=== PATIENT | female | born 2000 | race Caucasian/White ===

== ENCOUNTER 2018-02-09 02:07 | Day surgery (SDC) | payer BC ==
[2017-04-23 00:11] VITALS: Ht 171.4 cm; Wt 48.5 kg
[~2018-02-09] VITALS: Ht 171.4 cm; Wt 48.5 kg
[~2018-02-09 02:07] MED LIST: ACET-1718 PO; ARIP10TA4 PO; DICY20TA70 PO; DOXY-229 PO; IBUP600T22 PO; NIFE10CA38 PO; NITR-105 PO; PREN-127 PO
[2018-02-09 07:53] VITALS: BP 109/67
[2018-02-09] MEDS ORDERED: DEXAMETHASONE SOD PHOS 10MG/ML ONE (07:58)
[2018-02-09] MEDS ORDERED: ONDANSETRON 4 MG/2 ML VIAL ONE (07:58)
[2018-02-09] MEDS ORDERED: PROPOFOL EMUL(*) 10MG/ML 20 ML 20 ML ONE (07:58)
[2018-02-09] MEDS ORDERED: ROCURONIUM BROM 10 MG/ML 10 ML ONE (07:58)
[2018-02-09] MEDS ORDERED: LIDOCAINE MPF 1% 5 ML VIAL ONE (07:58)
[2018-02-09] MEDS ORDERED: fentaNYL CITR 100 MCG/2 ML AMP ONE (07:59)
[2018-02-09] MEDS ORDERED: FAMOTIDINE 20 MG TAB PO ONE (08:00)
[2018-02-09] MEDS ORDERED: NORMOSOL R SOLN(*) 1000 ML BAG 1,000 ML IV PRN (08:00)
[2018-02-09] MEDS ORDERED: MIDAZOLAM 2 MG/2 ML VIAL IVP PRN (08:00)
[2018-02-09] MEDS ORDERED: LIDOCAINE/SOD BICARB 8.4% SYR ID ONE (08:00)
[2018-02-09 08:02] LABS: PLATELET COUNT, AUTOMATED 282 K/uL (150-450)
[2018-02-09] MEDS ORDERED: ROPIVACAINE 0.2% 20 ML VIAL ONE (08:32)
[2018-02-09] MEDS ORDERED: ceFAZolin(*) 1 GM VIAL 1 GM in NS(*) 0.9% 100 ML ADDVANT BAG 100 ML IVPB ONE (08:40)
[2018-02-09] MEDS ORDERED: KETOROLAC 30 MG/ML VIAL ONE (09:30)
[2018-02-09] MEDS ORDERED: LR(*) 1000 ML BAG 1,000 ML IV ONE (10:07)
[2018-02-09] MEDS ORDERED: ONDANSETRON 4 MG/2 ML VIAL IVP PRN (10:10)
[2018-02-09] MEDS ORDERED: METOCLOPRAMIDE 10 MG/2 ML SDV IVP PRN (10:10)
--- NOTE | 2018-02-09 10:17 | Post Operative Note ---
Operative Note - [employer] Operative Day Date: Feb 09, 2018 Time: 10:08 Physicians Surgeon: Ailyn Hines Anesthesia: JORGE A Griffin Frey 0.2% rupivicaine Diagnosis Pre-Op Diagnosis: 17 y/o Pelvic pain -failed medical management Post-Op Diagnosis: same Procedure Findings: Uterus 6-8 week size. No masses or fibroids noted. Ovaries bilaterally normal. Fallopian tubes normal with patency noted on chrompertubation No evidence of endometriosis. Procedure(s): Diagnostic laparoscopy Chromopertubation Complications: 0 known Fluids Fluids: 1100 u/o=0 Estimated Blood Loss: 10 cc Dictated Date OP Note Dictated: Feb 09, 2018 Time OP Note Dictated: 10:16 AILYN HINES DO Feb 09, 2018 10:16
[2018-02-09] MEDS ORDERED: HYDR-4309 PO (10:19)
[2018-02-09] MEDS ORDERED: IBUP800T37 PO (10:19)
--- NOTE | 2018-02-09 10:21 | OB/GYN Discharge Summary ---
Discharge Summary Reason for Hosp/Final Diag: (1) Pelvic pain Status: Acute Hospital Course & Plan: Pt underwent diagnostic laparoscopy with chromopertubation for pelvic pain. See operative report for details. Pt remained in recovery and was discharged home from same day surgery. [place] Vital Signs Vital Signs Date Time Temp Pulse Resp B/P (MAP) Pulse Ox O2 Delivery O2 Flow Rate FiO2 02/09/18 09:46 89 20 95 02/09/18 07:53 97.8 109/67 (81) Room Air Weight (Pounds): 107 Result Diagram: 02/09/18 0748 Condition: No Change Discharge: Home Home Meds Active Scripts Ibuprofen (IBUPROFEN) 800 Mg Tablet, 1 TAB PO Q8H Y for PAIN, #20 TAB TAKE WITH FOOD EVERY 8 HOURS Prov:AILYN CLARKE DO 02/09/18 Hydrocodone Bit/Acetaminophen (NORCO 5-325 TABLET) 1 Each Tablet, 1 EACH PO Q4H Y for PAIN, #20 TAB 0 Refills Prov:AILYN CLARKE DO 02/09/18 Discontinued Scripts Dicyclomine Hcl (DICYCLOMINE HCL) 20 Mg Tablet, 20 MG PO QID for 14 Days, #56 TAB 1 Refill Prov:AILYN CLARKE DO 01/11/18 Doxycycline Monohydrate (DOXYCYCLINE MONOHYDRATE) 100 Mg Tablet, 100 MG PO BID, #20 TAB 0 Refills Prov:AILYN CLARKE DO 01/11/18 [phone] Follow up in: 2 wks PO Discharge Diet: As Tolerates, Resume Prior Admit Diet Discharge Activity: As Tolerates, Pelvic Rest AILYN CLARKE DO Feb 09, 2018 10:21
[2018-02-09 10:45] VITALS: BP 103/71
[2018-02-09 11:16] VITALS: BP 107/70
[2018-02-09 11:18] VITALS: BP 100/60
[2018-02-09] MEDS ORDERED: IBUPROFEN 800 MG TAB PO SCH (12:00)
--- NOTE | 2018-02-09 16:13 | OPERATIVE REPORT 1 ---
EVENT DATE: February 09, 2018 SURGEON: Rufino Hines DO ANESTHESIOLOGIST: Griffin Frey MD ANESTHESIA: General endotracheal intubation, 0.2% ropivacaine used for local incisions. PREOPERATIVE DIAGNOSES 1. A 17-year-old 1, para 1. 2. Pelvic pain, failed medical management. POSTOPERATIVE DIAGNOSES 1. A 17-year-old 1, para 1. 2. Pelvic pain, failed medical management. PROCEDURE PERFORMED Diagnostic laparoscopy with chromopertubation. FINDINGS Uterus 6 to 8 weeks' size. No masses or fibroids noted. Ovaries were normal bilaterally. Fallopian tubes normal with patency noted bilaterally on chromopertubation with no evidence of endometriosis in the pelvis or abdomen. Smooth liver. ESTIMATED BLOOD LOSS 10 mL INTRAVENOUS FLUIDS 1100 mL URINE OUTPUT None. PATHOLOGY None. COMPLICATIONS None known. CONDITION Stable to Recovery and then to Postop. COUNTS Correct for all needles, laps, sponges, and instruments. INDICATIONS AND CONSENT Patient is a 17-year-old 1, para 1, who presented to clinic with chief complaint of pelvic pain. On exam, she did have significant tenderness in line with what appeared to be an endometritis. She was started on doxycycline b.i.d. for 14 days. Patient returned, reported there had been little improvement in pain, and desired to proceed with surgical management to rule out endometriosis. She was counseled that there were other alternatives to try before surgery. The patient was adamant for surgery and desired to proceed accordingly. She was then counseled on risks, benefits, and alternatives, signed the appropriate consents, and was taken to the operating room DESCRIPTION OF PROCEDURE Patient was taken to the operating room where she had general anesthesia achieved. Once anesthesia was achieved, she was placed in the dorsal lithotomy position. She had an acorn uterine manipulator placed in the cervix. Attached to that was a syringe full of methylene blue dyed saline for the chromopertubation. The speculum was removed, and the surgeon's gloves were changed. Attention was turned to the abdomen. Laparoscopy: Ropivacaine 0.2% was then used to infiltrate the umbilicus with anesthesia achieved there. A 5 mm skin incision was then created with a scalpel. A Veress needle was then used to achieve pneumoperitoneum. With pneumoperitoneum achieved, the patient then had direct laparoscopic entry with a Visiport trocar. With laparoscopic placement, the patient had the entry points examined and found to be without any injury to the surrounding organs. The liver was visualized and found to be smooth. Attention was turned to the pelvis. The anterior cul-de-sac appeared to be smooth, without any lesions, masses, or signs of endometriosis. The uterus was then anteverted, and the posterior cul-de-sac, especially along the uterosacral ligaments, was cleaned of any signs of endometriosis. The ovaries were inspected and found to be without any masses. The left ovary did have a follicular cyst. The ovarian fossae bilaterally were inspected and found to be without endometriosis. The methylene blue was slowly infused through the acorn uterine manipulator. Both fallopian tubes were noted to be patent with blue dye spilling from the fimbria on both sides. At this point, the patient was flattened. The trocars were removed under laparoscopic visualization and the pneumoperitoneum released. Skin incisions were then closed with a 4-0 Monocryl in an interrupted manner. Incisions then had 4-0 Dermabond placed over them. The uterine acorn manipulator was then removed. The patient was then placed out of the lithotomy position. She was then awoken and transferred to the recovery room in stable condition. NIKOLE
== END 2018-02-09 10:45 | disposition home or self-care (01) ==
LOC: OR 02:07
PROVIDERS: ATTEND Student in an Organized Health Care Education/Training Program
DX: R10.2 Pelvic and perineal pain (principal)
CPT/HCPCS: 36415; 49320; 58350; 84703; 85025; J0690; J1100; J1885; J2001; J2250; J2405; J2704; J2795; J3010; J7050